=== PATIENT | female | born 1990 | race Caucasian/White ===

== ENCOUNTER 2019-01-03 08:29 | Emergency (ER) | payer OTHER ==
[2019-01-03 08:39] VITALS: O2SAT 97
--- NOTE | 2019-01-03 08:47 | ERPHSYRPT ---
- History of Present Illness Time Seen by Provider: 01/03/19 08:35 Source: patient Exam Limitations: no limitations Patient Subjective Stated Complaint: pt here for neck days now worse today, she states she is unable to move her neck and states pain going to shoulders, she has tried a new pillow this last week, denies any injury. Triage Nursing Assessment: pt alert, walked in, resp easy, skin w/d/p, has pain to left side of neck,pt unable to turn neck Physician History: Right sided non-traumatic neck pain for the past two days. Patient denies any recent motor vehicle accidents, any direct trauma to the head, neck, chest or shoulders, and recent fevers, sore throat, odynophagia, ear pain, sinus congestion, or sinus pain. She has recently slept on a new pillow over the past week. Timing/Duration: day(s) (2), worse Severity: severe Modifying Factors: Improves With: acetaminophen (no relief). Worsens With: movement Associated Symptoms: denies symptoms, No nausea, No vomiting, No abdominal pain , No shortness of breath, No heartburn, No diaphoresis, No cough, No chills, No chest pain, No fever, No headaches, No loss of appetite, No malaise, No rash, No syncope, No seizure, No weakness Allergies/Adverse Reactions: No Known Drug Allergies Allergy (Unverified 01/03/19 08:40) Hx Tetanus, Diphtheria Vaccination/Date Given: No Hx Influenza Vaccination/Date Given: No Hx Pneumococcal Vaccination/Date Given: No Immunizations Up to Date: Yes - Review of Systems Constitutional: No Fever, No Chills, No Lethargy Eyes: No Eye Pain, No Vision Changes Ears, Nose, & Throat: No Ear Pain, No Sinus Drainage, No Mouth Pain, No Mouth Swelling, No Throat Swelling, No Painful Swallowing Respiratory: No Cough, No Dyspnea Cardiac: No Chest Pain, No Palpitations, No Syncope Abdominal/Gastrointestinal: No Abdominal Pain, No Nausea, No Vomiting Genitourinary Symptoms: No Dysuria, No Hematuria, No Flank Pain Musculoskeletal: Neck Pain, No Arthralgias, No Back Pain, No Joint Swelling Skin: No Pruritis, No Rash Neurological: No Focal Weakness, No Headache, No Lethargy, No Parasthesia, No Sensory Changes, No Tremors Psychological: No Anxiety, No Emotional Lability Endocrine: No Polydipsia, No Excessive Sweating Hematologic/Lymphatic: No Easy Bleeding, No Easy Bruising All Other Systems: Reviewed and Negative - Past Medical History Pertinent Past Medical History: No - Past Surgical History Past Surgical History: Yes Female Surgical History: Section - Social History Smoking Status: Current every day smoker Exposure to second hand smoke: Yes Drug Use: none Patient Lives Alone: Yes - Female History Hx Last Menstrual Period: 3 weeks ago Hx Now: No - Nursing Vital Signs Nursing Vital Signs: Initial Vital Signs Temperature 97.7 F 01/03/19 08:33 Pulse Rate 74 01/03/19 08:33 Respiratory Rate 16 01/03/19 08:33 Blood Pressure 118/61 01/03/19 08:33 O2 Sat by Pulse Oximetry 97 01/03/19 08:33 Pain Scale Pain Intensity 6 - Physical Exam General Appearance: no apparent distress, alert Eye Exam: PERRL/EOMI, eyes nml inspection, No scleral icterus Ears, Nose, Throat Exam: normal ENT inspection, TMs normal, pharynx normal, moist mucous membranes, No TM abnormal (R), No TM abnormal (L), No pharyngeal erythema Neck Exam: normal inspection, supple, limited range of motion (right sided), other (tenderness on the right cervical paraspinal muscles), No meningismus, No Brudzinski, No Kernig's, No lymphadenopathy, No midline tenderness Respiratory Exam: normal breath sounds, lungs clear, airway intact, No chest tenderness, No respiratory distress, No diminished breath sounds, No accessory muscle use, No prolonged expirations, No crackles/rales, No rhonchi, No wheezing , No stridor Cardiovascular Exam: regular rate/rhythm, normal heart sounds, normal peripheral pulses, capillary refill <2 sec Gastrointestinal/Abdomen Exam: soft, normal bowel sounds, No tenderness, No distention, No mass, No guarding, No ecchymosis Back Exam: normal inspection, normal range of motion, No CVA tenderness, No vertebral tenderness, No rash Extremity Exam: normal inspection, normal range of motion, pelvis stable, No calf tenderness, No inflammation, No swelling Neurologic Exam: alert, oriented x 3, cooperative, sweeper cleaner industrial II-XII nml as tested, normal mood/affect, nml cerebellar function, sensation nml, No motor deficits Skin Exam: normal color, warm, dry, No rash, No petechiae, No jaundice, No cyanosis SpO2 Interpretation: normal SpO2: 97 O2 Delivery: Room Air - Radiology Exams C-Spine X-ray Interpretation: Interpreted by me, Reviewed by me, No Fracture, No Subluxation, Nml Alignment, Nml Soft Tissues, Other (reversal of the cervical lordosis most likely due to spasm with minimal DDD at C5-C6; confirmed by Radiologist interpretation) Ordered Tests: Active Orders 24 hr Category Date Time Status CERVICAL SPINE (2 OR 3 VIEW) Stat Exams 01/03/19 08:37 Completed HCG,QUALITATIVE URINE Stat Lab 01/03/19 08:48 Completed Medication Summary Discontinued Medications Generic Name Dose Route Start Last Admin Trade Name Anjali PRN Reason Stop Dose Admin Ketorolac Tromethamine 60 mg 01/03/19 08:54 01/03/19 09:07 Toradol 30 Mg Injection IM 01/03/19 08:55 60 mg STAT ONE Administration Ketorolac Tromethamine Confirm 01/03/19 08:58 Toradol 30 Mg Injection Administered 01/03/19 08:59 Dose 60 mg .ROUTE .STK-MED ONE Oxycodone/Acetaminophen 1 tab 01/03/19 08:55 01/03/19 09:06 Percocet Tablet 5/325mg PO 01/03/19 08:56 1 tab STAT STA Administration Oxycodone/Acetaminophen Confirm 01/03/19 08:57 Percocet Tablet 5/325mg Administered 01/03/19 08:58 Dose 1 tab .ROUTE .STK-MED ONE Lab/Rad Data: Laboratory Results 01/03/19 Range/Units 08:48 Urine HCG, Qual NEGATIVE (Negative) - Progress Progress: improved Progress Note: 01/03/19 09:21 the patient is beginning to feel better after the medication. Patient still has discomfort at right lateral neck over the cervical paraspinal muscles. Patient has no focal neurologic deficits laboratories and has no signs of infection on her HEENT or chest exams. The patient will be discharged home and may follow up with her physician or chiropractor to continue evaluation and management of her neck pain. Counseled pt/family regarding: diagnosis, need for follow-up, rad results - Departure Departure Disposition: Home Clinical Impression: Right torticollis Cervical strain, acute Qualifiers: Encounter type: initial encounter Qualified Code(s): S16.1XXA - Strain of muscle, fascia and tendon at neck level, initial encounter Condition: Good Critical Care Time: No Referrals: ANABELLA OLIVO MD [Primary Care Provider] - Follow Up with PCP/3 days Instructions: Cervical Muscle Strain (DC), Torticollis (DC), Neck Stretches Additional Instructions: Your cervical spine x-rays show some signs of muscle spasm and very minor degenerative disc disease at C5-C6 level but no other bony or obvious disc abnormalities per Emergency department physician and Radiologist interpretations. Return immediately back to the emergency department if you have any new weakness, new loss of sensation, new fever, worsening pain that is not responding to medication, new injury, new headache, new skin rash, or any other concerning signs or symptoms that were not present at today's emergency room visit for immediate reevaluation in the emergency department. Prescriptions: Etodolac 400 mg [Lodine 400 mg] 400 mg PO BID PRN PRN #20 tablet PRN Reason: Pain Tizanidine HCl 4 mg [Zanaflex 4 MG] 4 mg PO TID PRN #12 tablet PRN Reason: Muscle Spasms
[2019-01-03] MEDS ORDERED: TORAdol 30 mg Injection IM ONE (08:54)
[2019-01-03] MEDS ORDERED: PERCOCET TABLET 5/325MG PO STA (08:55)
[2019-01-03] MEDS ORDERED: PERCOCET TABLET 5/325MG ONE (08:57)
[2019-01-03] MEDS ORDERED: TORAdol 30 mg Injection ONE (08:58)
--- NOTE | 2019-01-03 09:24 | XRAY ---
Indication: Right neck pain. No known injury. Comparison: None 3 views of the cervical spine demonstrates cervical lordotic straightening and minimal C5-C6 disc space narrowing. No other bony, articular, or soft tissue abnormalities.
[2019-01-03 09:34] VITALS: BP 113/69; PULSE 83
== END 2019-01-03 09:45 | disposition home or self-care (01) ==
LOC: ED 08:29
DX: M43.6 Torticollis (principal); S16.1XXA Strain of muscle, fascia and tendon at neck level, initial encounter; X50.9XXA Other and unspecified overexertion or strenuous movements or postures, initial encounter
CPT/HCPCS: 72040; 84703; 96372; 99284; J1885; A9270-GY